=== PATIENT | female | born 1975 | race Caucasian/White ===

== ENCOUNTER 2020-08-04 10:11 | Outpatient (CLI) | payer BC ==
--- NOTE | 2020-08-04 13:56 | MRI ---
MRI BREAST W W/O CONT BILAT History: Breast cancer Comparison: None. Findings: Multiplanar multisequence MRI of the breasts was performed prior to and after the intraveno us administration of contrast. The exam was reviewed on an independent 3-D workstation. Bilateral mastectomy change with breast implants. Small bilateral pleural effusions. No abnormal enhancing mass. The breast implants do create inhomogeneous fat suppression. No abnormal liver mass. Small cyst hepatic segment 4A. Marrow signal of the sternum and manubrium is maintained on the T1 weighted sequence. Aortic contour is normal. Both breast implants are intact. No internal mammary no axillary adenopathy. Impression: BI-RADS Category 2: Benign findings. Continue screening is recommended.
== END 2020-08-04 10:12 | disposition home or self-care (01) ==
LOC: BICMRI 10:11
DX: Z08 Encounter for follow-up examination after completed treatment for malignant neoplasm (principal); J90 Pleural effusion, not elsewhere classified; Z90.13 Acquired absence of bilateral breasts and nipples; Z98.82 Breast implant status; Z85.3 Personal history of malignant neoplasm of breast
CPT/HCPCS: A9577; C8908

== ENCOUNTER 2021-05-30 07:58 | Outpatient (CLI) | payer OTHER ==
[2021-05-30] MEDS ORDERED: Iopamidol-370 76% 500 ML 1 ML ONE (09:54)
== END 2021-05-30 07:59 | disposition home or self-care (01) ==
LOC: BICCT 07:58
PROVIDERS: ATTEND Internal Medicine Medical Oncology
DX: C50.919 Malignant neoplasm of unspecified site of unspecified female breast (principal); R74.8 Abnormal levels of other serum enzymes
CPT/HCPCS: 74177; Q9967

== ENCOUNTER 2021-06-04 11:29 | Outpatient (CLI) | payer OTHER ==
[2021-06-05 00:59] LABS: SARS-CoV-2 PCR by NAA Not Detected (NotDetected)
== END 2021-06-04 11:30 | disposition home or self-care (01) ==
LOC: LABBT 11:29
PROVIDERS: ATTEND Internal Medicine
DX: Z01.812 Encounter for preprocedural laboratory examination (principal); Z12.11 Encounter for screening for malignant neoplasm of colon; Z20.822 Contact with and (suspected) exposure to COVID-19
CPT/HCPCS: U0003; U0005

== ENCOUNTER 2021-07-25 08:09 | Outpatient (CLI) | payer OTHER | END 2021-07-25 08:10 | disposition home or self-care (01) | LOC: BICMAMMO 08:09 | PROVIDERS: ATTEND Internal Medicine Endocrinology, Diabetes & Metabolism | DX: M81.0 Age-related osteoporosis without current pathological fracture (principal); M85.851 Other specified disorders of bone density and structure, right thigh; M85.852 Other specified disorders of bone density and structure, left thigh | CPT/HCPCS: 77080 ==

== ENCOUNTER 2023-05-07 08:13 | Outpatient (CLI) | payer OTHER | END 2023-05-07 08:14 | disposition home or self-care (01) | LOC: NM 08:13 | PROVIDERS: ATTEND Internal Medicine Medical Oncology | DX: C50.919 Malignant neoplasm of unspecified site of unspecified female breast (principal); M25.551 Pain in right hip; Z15.01 Genetic susceptibility to malignant neoplasm of breast | CPT/HCPCS: 78306 ==

== ENCOUNTER 2023-09-10 10:56 | Outpatient (CLI) | payer OTHER ==
[~2023-09-10 10:56] MED LIST: Magnevist 469MG/ML 20 ML VIAL ONE
== END 2023-09-10 10:57 | disposition home or self-care (01) ==
LOC: MRI 10:56
DX: C50.511 Malignant neoplasm of lower-outer quadrant of right female breast (principal); C50.411 Malignant neoplasm of upper-outer quadrant of right female breast
CPT/HCPCS: 70553; A9579

== ENCOUNTER 2025-08-19 10:39 | Outpatient (CLI) | payer OTHER | END 2025-08-19 10:40 | disposition home or self-care (01) | LOC: SCSBT 10:39 | PROVIDERS: ATTEND Internal Medicine Endocrinology, Diabetes & Metabolism | DX: M81.0 Age-related osteoporosis without current pathological fracture (principal) | CPT/HCPCS: 77080 ==